=== PATIENT | male | born 1940 | race Caucasian/White ===

== ENCOUNTER 2017-07-25 14:15 | Emergency (ER) | payer OTHER ==
--- NOTE | 2017-07-25 14:53 | EDM.PDOC ---
ED HPI GENERAL MEDICAL PROBLEM - General Chief Complaint: Skin Complaint Stated Complaint: POST SURGICAL ISSUES Time Seen by Provider: 07/25/17 14:48 Source of Information: Reports: Patient, Family History Limitations: Reports: No Limitations - History of Present Illness INITIAL COMMENTS - FREE TEXT/NARRATIVE: 77-year-old male presents the ED for evaluation of marked swelling of his right upper extremity. Patient underwent formation of an AV fistula distal anterior volar arm days ago in [place]. This is in preparation for future dialysis need. He presents for evaluation due to marked swelling of the right upper extremity which is now spent all way down to his right hand. He was advised to keep his hand above the level of his heart but he was not given a sling per se. He has a sling at home but has not been using it much. Face the hand is now clumsy and weak due to the swelling.Sensation in his fingertips. There is also some serous drainage from his surgical wound which was of concern to his and daughter. He has no systemic signs of illness such as fever chills nausea vomiting. Onset: Gradual (right arm swelling is gradually worsened since surgery 3 days ago i.e. ) Duration: Day(s): Location: Reports: Upper Extremity, Right Quality: Reports: Ache, Other Severity: Moderate (righ) Improves with: Reports: None (t ar) Worsens with: Reports: None (pieter acosta) Context: Reports: Other (ng is gradual) Associated Symptoms: Reports: No Other Symptoms (ly wo) Treatments CLEANING SPECIALIST: Reports: Other (see below) (sened since surger) Past Medical History Genitourinary History: Reports: None (), Chronic Renal Insuffiency (July 22.genus of the hand and arm and inability to flex at the elbow.), Other ( See Below) (AV fistula performed July 22 right arm in preparation for likely need for dialysis in the next 6-12 months) Musculoskeletal History: Reports: Back Pain, Chronic Social & Family History - Living Situation & Occupation Living situation: Reports: Occupation: Retired ED ROS GENERAL - Review of Systems Review Of Systems: See Below Constitutional: Reports: Malaise, Fatigue (worse than normal). Denies: Fever, Chills HEENT: Reports: Glasses (for reading.) Respiratory: Reports: Shortness of Breath (n minimal exertion.) Cardiovascular: Reports: Blood Pressure Problem, Dyspnea on Exertion (chronic edema of the lower extremitieslikely), Edema. Denies: Chest Pain, Claudication , Lightheadedness, Orthopnea (as chronic hypertension related to renal disease) Endocrine: Reports: Fatigue GI/Abdominal: Reports: No Symptoms : Reports: Frequency, Other (passes small qualities of urine at a time.) Musculoskeletal: Reports: Neck Pain, Shoulder Pain (at timesat times), Back Pain , Joint Pain Skin: Reports: Bruising (nees and hips at times.bruises easily) Neurological: Reports: No Symptoms Psychiatric: Reports: No Symptoms Hematologic/Lymphatic: Reports: No Symptoms Immunologic: Reports: No Symptoms ED EXAM, SKIN/RASH Exam: See Below Exam Limited By: No Limitations General Appearance: Alert, WD/WN, No Apparent Distress, Other (color is poor a more of a bronzy slightly sallow complexion.) Eye Exam: Bilateral Eye: Normal Inspection Throat/Mouth: Normal Inspection, Normal Lips, Normal Oropharynx Head: Atraumatic, Normocephalic Neck: Normal Inspection, Supple, Limited Range of Motion, Tender Lateral (ild.) Respiratory/Chest: Respiratory Distress, Decreased Breath Sounds (tachypnea at rest), Rales (occasional crackles throughout both lung mcgowan.) Cardiovascular: Regular Rate, Rhythm, No Murmur, No Rub Peripheral Pulses: 1+: Posterior Tibial (L), Posterior Tibial (R), Dorsalis Pedis (L), Dorsalis Pedis (R), 3+: Radial (R) Extremities: Other (patient has marked swelling of his right arm particularly the distal one half. The AV fistula is formed in the volar surface above the antecubital fossa. The wound has been closed with glue. It is oozing some serous fluid. He has some bubbling of the skin of his proximal forearm due to fluid accumulation. The entire form is grossly swollen as is the dorsal aspect of his hand and even palmar aspect of the hand has fluid within it. Sensation is normal. He is unable to make a full fist due to the swelling of his hand similarly is unable to flex at the extra fossa due to the swelling. There is faint erythema of the arm but it appears to be due to underlying inflammation from blood in the soft tissues as it is not increased warmth to suggest a cellulitis. Patient reassured elevation is much as possible. I would wear the sling all day long and take it off when he's sitting at home and he can put up on a pillow. Swelling will start to go down over the next 3-7 days. The serous drainage is to be wiped away as often as needed 2 with soap and water. Topical antibiotic such as bacitracin or Polysporin to any of the blisters that pop up on his forearm until they heal. Is good strong radial pulse and he has good palpable thrill and auscultatory thrill over his AV fistula i.e. it is functioning normally.) Course - Vital Signs Last Recorded V/S: Last Vital Signs Temp 36.7 C 07/25/17 14:43 Pulse 87 07/25/17 14:43 Resp 20 07/25/17 14:43 BP 167/82 H 07/25/17 14:43 Pulse Ox 90 L 07/25/17 14:43 - Radiology Interpretation Free Text/Narrative:: 77-year-old male presents to the ED for evaluation of marked swelling of his right upper extremity post AV fistula formation distalanterior or volar arm above the antecubital fossa 3 days ago in [place]. He does have marked swelling of the entire one half of the arm is his entire forearm and his dorsal hand. Appears it was significant blood loss of the soft tissues at the time of surgery. There is some serous drainage from his wound but it still intact and closed the skin glue. There is some bubbling of the skin of his proximal forearm with one of them opening up and draining serous material. He has not been keeping in sling and therefore it is probably more swollen than it should be. At any rate there is no signs of infection of the wound at this time. His AV fistula is still functioning well with a good palpable thrill and good strong radial pulse.Treatment is to keep the arm elevated as much as possible. I suggested sling throughout the entire day when he's at home he can put it on a pillow to keep it at heart level. Serous drainage to be wiped away with soap and water as often as needed and topical antibiotic bacitracin or Polysporin to any wound that opens up and is draining serous material. Any signs of infection occur such as increased redness swelling or systemic signs of illness such as fever chills nausea vomiting. Departure - Departure Time of Disposition: 14:49 Disposition: Home, Self-Care 01 Condition: Fair Clinical Impression: Swelling of right upper extremity - Discharge Information Referrals: PCP,Not In Area [Primary Care Provider] - Forms: ED Department Discharge Additional Instructions: Evaluation in the emergency room today in regards to recent AV fistula formation right lower arm in preparation for hemodialysis in the future.this procedure was done 3 days ago. Due to the ED due to marked swelling of the biceps of the right armhich then extends throughout the forearm down to the dorsal aspect of the hand making it markedly swoln. Slight erythema of the arm but no increased warmth. is no sign of active infection at this time. There are some blisters forming on the proximal forearm and if these open up the need to be cleansed daily with soap and water and topical antibiotic such as bacitracin or Polysporin placed on them until the skin heals. The swelling is secondary to blood loss from the procedure itself. A lot of blood obviously was lost into the soft tissues muscles etc. and is now coming to the surface of the skin. [place] has caused the fluid to travel down the arm owards the hand. This is created the large amount of swelling. However the fistula itself is functioning well with apalpable thrill as well as auscultatory throat. You have good strong radial pulse 2-year-old right wrist. For other than swelling there are no complications of the procedure at this time. Treatment is to try keep the arm elevated at the level of the heart is much as possible when up and about. I would suggest an arm sling during the day when resting at home he may certainly put it on a pillow at at heart level.leroy the arm with gentle soap and water twice or 3 times daily until the serous drainage stops.This will usuallybe within the next 3 or 4 days. Return to medical care if the arm becomes hot red or inflamed develop any systemic signs of illness such as fever chills nausea or vomiting.
== END 2017-07-25 15:15 | disposition home or self-care (01) ==
LOC: JD.ED 14:15
DX: M79.89 Other specified soft tissue disorders (principal); N18.9 Chronic kidney disease, unspecified; Z99.2 Dependence on renal dialysis
CPT/HCPCS: 99283

== ENCOUNTER 2017-09-30 09:41 | Emergency (ER) | payer OTHER ==
[2017-09-30] MEDS ORDERED: Aspirin 81 MG Tab.Chew PO ONE (09:58)
[2017-09-30] MEDS ORDERED: Sodium Chloride 0.9% 10 ML Syringe FLUSH PRN (09:58)
[2017-09-30] MEDS ORDERED: Albuterol/Ipratropium 3.0-0.5 MG/3 ML Neb Soln NEB ONE (10:00)
[2017-09-30] MEDS ORDERED: methylPREDNISolone Sodium Succinate 125 MG/2 ML SDV IVPUSH ONE (10:00)
--- NOTE | 2017-09-30 11:13 | EDM.PDOC ---
ED HPI GENERAL MEDICAL PROBLEM - General Chief Complaint: Chest Pain Stated Complaint: CHEST PAIN Time Seen by Provider: 09/30/17 09:52 Source of Information: Reports: Patient, Family History Limitations: Reports: No Limitations - History of Present Illness INITIAL COMMENTS - FREE TEXT/NARRATIVE: The patient presents with chest pain and shortness of breath for the past 1 month. He is in renal failure and is scheduled for a nephrology consult with Dr Oliver tomorrow at [facility]. He has been having chest tightness and pressure. He is wearing 3L of oxygen at home. He is on that for COPD exacerbation. He has never been in A-fib before but it appears he is in A-fib now. He has no fever, chills, cough, abdominal pain, nausea or vomiting. He has edema in his legs. [facility] and he his doctor is at [facility] in [place]. Onset: Gradual Duration: Week(s): (4) Location: Reports: Chest Quality: Reports: Other (Tightness) Severity: Moderate Improves with: Reports: None Worsens with: Reports: None Associated Symptoms: Reports: Chest Pain, Shortness of Breath. Denies: Cough, Fever/Chills, Headaches, Nausea/Vomiting Chest Pain Score (Numeric/FACES): 10 - Related Data Allergies Allergy/AdvReac Type Severity Reaction Status Date / Time No Known Allergies Allergy Verified 09/30/17 09:50 Home Meds: Home Meds Acetaminophen [Tylenol Extra Strength] 1,000 mg PO Q6H PRN 09/30/17 [History] Acetaminophen/HYDROcodone [[place] 325-5 MG] 1 tab PO Q4H PRN 09/30/17 [History] Albuterol [Proventil HFA] 2 puff INH QID PRN 09/30/17 [History] Allopurinol [Zyloprim] 100 mg PO DAILY 09/30/17 [History] Ascorbic Acid [Vitamin C] 100 mg PO DAILY 09/30/17 [History] Aspirin 81 mg PO DAILY 09/30/17 [History] ClonazePAM [KlonoPIN] 1 mg PO BEDTIME 09/30/17 [History] Docusate Sodium [Colace] 100 mg PO DAILY 09/30/17 [History] Ferrous Sulfate 650 mg PO BID 09/30/17 [History] Formoterol [Foradil] 12 mcg PO BID 09/30/17 [History] Furosemide [Lasix] 40 mg PO DAILY 09/30/17 [History] Isosorbide Mononitrate [Imdur] 30 mg PO DAILY 09/30/17 [History] Metoprolol Tartrate [Lopressor] 50 mg PO BID 09/30/17 [History] Mineral Oil/Pramoxine/ZnOx [Anusol] 1 applic RECTAL DAILY PRN 09/30/17 [History] Nitroglycerin [Nitrostat] 0.4 mg PO Q5M PRN 09/30/17 [History] [place]-3/DHA/Epa/Fish Oil [Fish Oil 1,000 mg Softgel] 3,000 mg PO DAILY 09/30/17 [History] Omeprazole Magnesium [Prilosec Otc] 20 mg PO BID 09/30/17 [History] Tamsulosin [Flomax] 0.4 mg PO DAILY 09/30/17 [History] Viagra 50 mg PO DAILY PRN 09/30/17 [History] amLODIPine Besylate [Norvasc] 10 mg PO DAILY 09/30/17 [History] atorvaSTATin Calcium [Lipitor] 40 mg PO DAILY 09/30/17 [History] buPROPion [Wellbutrin] 100 mg PO BID 09/30/17 [History] Past Medical History Respiratory History: Reports: COPD Genitourinary History: Reports: Chronic Renal Insuffiency Other Genitourinary History: fistula placed to the right inner forearm for upcoming dialysis Musculoskeletal History: Reports: Back Pain, Chronic Social & Family History - Tobacco Use Smoking Status *Q: Former Smoker Used Tobacco, but Quit: Yes Month/Year Tobacco Last Used: August 2017 - Caffeine Use Caffeine Use: Reports: Coffee, Soda, Tea - Living Situation & Occupation Living situation: Reports: Occupation: Retired ED ROS GENERAL - Review of Systems Review Of Systems: See Below Constitutional: Reports: No Symptoms HEENT: Reports: No Symptoms Respiratory: Reports: Shortness of Breath Cardiovascular: Reports: Chest Pain, Dyspnea on Exertion, Edema Endocrine: Reports: No Symptoms GI/Abdominal: Reports: No Symptoms : Reports: No Symptoms Musculoskeletal: Reports: Other (Bilateral leg edema) ED EXAM, GENERAL - Physical Exam Exam: See Below Exam Limited By: No Limitations General Appearance: Alert, Mild Distress Ears: Normal External Exam Nose: Normal Inspection Head: Atraumatic, Normocephalic Neck: Normal Inspection Respiratory/Chest: Respiratory Distress (mild), Decreased Breath Sounds, Wheezing Cardiovascular: No Murmur, Irregularly Irregular, Other (Bilateral leg edema) GI/Abdominal: Soft, Non-Tender, No Organomegaly, No Mass Back Exam: Normal Inspection Extremities: Pedal Edema Neurological: Alert, Oriented, No Motor/Sensory Deficits EKG INTERPRETATION EKG Date: 09/30/17 Time: 09:48 Rhythm: A-Fib Rate (Beats/Min): 106 [place]: Normal QRS: Normal ST-T: Depressed (anterior, lateral and inferior leads) QT: Normal Course - Vital Signs Last Recorded V/S: Last Vital Signs Temp 97.2 F 09/30/17 09:47 Pulse 117 H 09/30/17 09:47 Resp 26 H 09/30/17 09:47 BP 131/80 09/30/17 09:47 Pulse Ox 93 L 09/30/17 10:15 - Orders/Labs/Meds Orders: Active Orders 24 hr Category Date Time Status Cardiac Monitoring [RC] . DIRECTED Care 09/30/17 09:58 Active EKG Documentation Completion [RC] STAT Care 09/30/17 09:59 Active Oxygen Therapy [RC] PRN Care 09/30/17 09:58 Active Peripheral IV Care [RC] . DIRECTED Care 09/30/17 09:59 Active RT Aerosol Therapy [RC] ASDIRECTED Care 09/30/17 10:00 Active Chest 1V Frontal [CR] Stat Exams 09/30/17 10:00 Taken CULTURE BLOOD [BC] Stat Lab 09/30/17 11:00 Received CULTURE BLOOD [BC] Stat Lab 09/30/17 11:10 Received PATIENT RETYPE [BBK] Stat Lab 09/30/17 09:50 Results RED BLOOD CELLS LP [BBK] Stat Lab 09/30/17 09:50 Results TYPE AND SCREEN [BBK] Stat Lab 09/30/17 09:50 Results UA W/MICROSCOPIC [URIN] Stat Lab 09/30/17 10:42 Ordered HYDROmorphone [Dilaudid] Med 09/30/17 11:37 Once 0.5 mg IVPUSH ONETIME ONE Potassium Chloride [KCl 10 MEQ in Water 100 ML] 10 meq Med 09/30/17 11:30 Active Premix Bag 1 bag IV ASDIRECTED Sodium Chloride 0.9% [Saline Flush] Med 09/30/17 09:58 Active 10 ml FLUSH ASDIRECTED PRN Blood Culture x2 Reflex Set [OM.PC] Stat [facility] 09/30/17 10:43 Ordered Peripheral IV Insertion Adult [OM.PC] Stat [facility] 09/30/17 09:58 Ordered Transfuse PRBC [Transfuse Red Blood Cells] [COMM] Stat Ot 09/30/17 10:44 Ordered Medication Orders Potassium Chloride 10 meq/ (Premix) 100 mls @ 100 mls/hr IV ASDIRECTED NICOL Sodium Chloride (Saline Flush) 10 ml FLUSH ASDIRECTED PRN PRN Reason: Keep Vein Open Last Admin: 09/30/17 10:24 Dose: 10 ml Labs: Laboratory Tests 09/30/17 09/30/17 09/30/17 Range/Units 09:50 09:50 09:50 WBC 13.47 H (4.23-9.07) K/mm3 RBC 2.52 L (4.63-6.08) M/mm3 Hgb 7.9 L (13.7-17.5) gm/L Hct 25.1 L (40.1-51.0) % MCV 99.6 H (79.0-92.2) fl MCH 31.3 (25.7-32.2) pg MCHC 31.5 L (32.2-35.5) g/dl RDW Std Deviation 55.6 H (35.1-43.9) fL Plt Count 268 (163-337) K/mm3 MPV 9.4 (9.4-12.3) fl Neut % (Auto) 81.6 H (34.0-67.9) % Lymph % (Auto) 7.8 L (21.8-53.1) % [place] % (Auto) 9.8 (5.3-12.2) % Eos % (Auto) 0.4 L (0.8-7.0) Baso % (Auto) 0.1 (0.1-1.2) % Neut # (Auto) 10.98 H (1.78-5.38) K/mm3 Lymph # (Auto) 1.05 L (1.32-3.57) K/mm3 [place] # (Auto) 1.32 H (0.30-0.82) K/mm3 Eos # (Auto) 0.06 (0.04-0.54) K/mm3 Baso # (Auto) 0.02 (0.01-0.08) K/mm3 Manual Slide Review Abnormal smear Sodium 140 (136-145) mEq/L Potassium 2.7 L (3.5-5.1) mEq/L Chloride 99 (98-107) mEq/L Carbon Dioxide 28 (21-32) mEq/L Anion Gap 15.7 H (5-15) BUN 43 H (7-18) mg/dL Creatinine 5.6 H (0.7-1.3) mg/dL Est Cr Clr Drug Dosing 11.05 mL/min Estimated GFR (MDRD) 10 (>60) mL/min BUN/Creatinine Ratio 7.7 L (14-18) Glucose 112 (83-115) mg/dL Calcium 6.5 L (8.5-10.1) mg/dL Total Bilirubin 0.4 (0.2-1.0) mg/dL AST 20 (15-37) U/L ALT 15 L (16-63) U/L Alkaline Phosphatase 72 (46-116) U/L Troponin I 0.243 H* (0.00-0.056) ng/mL NT-Pro-B Natriuret Pep > 31360 H (0-450) pg/mL Total Protein 6.5 (6.4-8.2) g/dl Albumin 2.2 L (3.4-5.0) g/dl Globulin 4.3 gm/dL Albumin/Globulin Ratio 0.5 L (1-2) Blood Type Gel Antibody Screen Crossmatch 09/30/17 Range/Units 09:50 WBC (4.23-9.07) K/mm3 RBC (4.63-6.08) M/mm3 Hgb (13.7-17.5) gm/L Hct (40.1-51.0) % MCV (79.0-92.2) fl MCH (25.7-32.2) pg MCHC (32.2-35.5) g/dl RDW Std Deviation (35.1-43.9) fL Plt Count (163-337) K/mm3 MPV (9.4-12.3) fl Neut % (Auto) (34.0-67.9) % Lymph % (Auto) (21.8-53.1) % [place] % (Auto) (5.3-12.2) % Eos % (Auto) (0.8-7.0) Baso % (Auto) (0.1-1.2) % Neut # (Auto) (1.78-5.38) K/mm3 Lymph # (Auto) (1.32-3.57) K/mm3 [place] # (Auto) (0.30-0.82) K/mm3 Eos # (Auto) (0.04-0.54) K/mm3 Baso # (Auto) (0.01-0.08) K/mm3 Manual Slide Review Sodium (136-145) mEq/L Potassium (3.5-5.1) mEq/L Chloride (98-107) mEq/L Carbon Dioxide (21-32) mEq/L Anion Gap (5-15) BUN (7-18) mg/dL Creatinine (0.7-1.3) mg/dL Est Cr Clr Drug Dosing mL/min Estimated GFR (MDRD) (>60) mL/min BUN/Creatinine Ratio (14-18) Glucose (83-115) mg/dL Calcium (8.5-10.1) mg/dL Total Bilirubin (0.2-1.0) mg/dL AST (15-37) U/L ALT (16-63) U/L Alkaline Phosphatase (46-116) U/L Troponin I (0.00-0.056) ng/mL NT-Pro-B Natriuret Pep (0-450) pg/mL Total Protein (6.4-8.2) g/dl Albumin (3.4-5.0) g/dl Globulin gm/dL Albumin/Globulin Ratio (1-2) Blood Type A POSITIVE Gel Antibody Screen Negative Crossmatch See Detail Meds: Medications Generic Name Dose Route Start Last Admin Trade Name Freq PRN Reason Stop Dose Admin Potassium Chloride 10 meq/ 100 mls @ 100 mls/hr 09/30/17 11:30 Premix IV ASDIRECTED NICOL Sodium Chloride 10 ml 09/30/17 09:58 09/30/17 10:24 Saline Flush FLUSH 10 ml ASDIRECTED PRN Administration Keep Vein Open Discontinued Medications Generic Name Dose Route Start Last Admin Trade Name [place] PRN Reason Stop Dose Admin Albuterol/Ipratropium 3 ml 09/30/17 10:00 09/30/17 10:15 Duoneb 3.0-0.5 Mg/3 Ml NEB 09/30/17 10:01 3 ml ONETIME ONE Administration Aspirin 324 mg 09/30/17 09:58 09/30/17 10:23 Aspirin PO 09/30/17 09:59 324 mg ONETIME ONE Administration Calcium Gluconate 1 gm 09/30/17 11:24 Calcium Gluconate IV 09/30/17 11:25 ONETIME ONE Furosemide 80 mg 09/30/17 11:22 Lasix IVPUSH 09/30/17 11:23 NOW ONE Methylprednisolone Sodium Succinate 125 mg 09/30/17 10:00 09/30/17 10:23 Solu-Medrol IVPUSH 09/30/17 10:01 125 mg ONETIME ONE Administration - Re-Assessments/Exams Free Text/Narrative Re-Assessment/Exam: 09/30/17 11:17 I ordered oxygen, labs, EKG, CXR, duo-neb, solu-medrol 125mg IV. His EKG shows new onset Atrial fibrillation with some ST depressions. His CXR shows congestive changes. His WBC was elevated at 13.47. His Hgb was low at 7.9. He has a history of anemia and he has been getting blood transfusions at [facility]. He was told he has some ulcers that were causing the problem. He has dark stool but he says that is normal for him because he is taking iron. I have ordered 2 units of PRBCs. His K was low at 2.7. His creatinine was 5.6. His BUN was elevated at 43. His GFR was 10. His calcium was low at 6.5. His troponin was elevated at 0.243. His BNP was very elevated >35,000. He does still make urine so I will give him some lasix 80mg IV. I will also give him some K 10meq IV and some calcium. I called [facility] to see if I need prior authorization to transfer him to [place]. They said they don't do preauthorizations and they wanted me to take care of Tani. 09/30/17 11:38 I feel he needs dialysis today. He will need to go to [facility]. I called [facility] and talked with the hospitalist Dr Barahona and he accepted the patient. The patient was having restless legs and pain in his legs. I ordered dilaudid 0.5mg IV. I will send him by Ambulance with the blood. Departure - Departure Time of Disposition: 11:50 Disposition: DC/Tfer to [facility] 02 Reason for Transfer *Q: Other Condition: Poor Clinical Impression: COPD exacerbation, New onset atrial fibrillation, Elevated troponin, Restless leg, Hypokalemia, Hypocalcemia Renal failure, acute Qualifiers: Acute renal failure type: unspecified Qualified Code(s): N17.9 - Acute kidney failure, unspecified CHF exacerbation Qualifiers: Heart failure type: unspecified Qualified Code(s): I50.9 - Heart failure, unspecified Anemia Qualifiers: Anemia type: other cause Other causes of anemia: other cause, not classified Qualified Code(s): D64.89 - Other specified anemias Leukocytosis Qualifiers: Leukocytosis type: unspecified Qualified Code(s): D72.829 - Elevated white blood cell count, unspecified Referrals: PCP,Not In Area [Primary Care Provider] - Forms: ED Department Discharge - My Orders Last 24 Hours: My Active Orders 09/30/17 09:50 PATIENT RETYPE [BBK] Stat RED BLOOD CELLS LP [BBK] Stat TYPE AND SCREEN [BBK] Stat 09/30/17 09:58 Cardiac Monitoring [RC] . DIRECTED Oxygen Therapy [RC] PRN Sodium Chloride 0.9% [Saline Flush] 10 ml FLUSH ASDIRECTED PRN Peripheral IV Insertion Adult [OM.PC] Stat 09/30/17 09:59 EKG Documentation Completion [RC] STAT Peripheral IV Care [RC] . DIRECTED 09/30/17 10:00 RT Aerosol Therapy [RC] ASDIRECTED Chest 1V Frontal [CR] Stat 09/30/17 10:42 UA W/MICROSCOPIC [URIN] Stat 09/30/17 10:43 Blood Culture x2 Reflex Set [OM.PC] Stat 09/30/17 10:44 Transfuse PRBC [Transfuse Red Blood Cells] [COMM] Stat 09/30/17 11:00 CULTURE BLOOD [BC] Stat 09/30/17 11:10 CULTURE BLOOD [BC] Stat 09/30/17 11:30 Potassium Chloride [KCl 10 MEQ in Water 100 ML] 10 meq Premix Bag 1 bag IV ASDIRECTED 09/30/17 11:37 HYDROmorphone [Dilaudid] 0.5 mg IVPUSH ONETIME ONE - Assessment/Plan Last 24 Hours: My Active Orders 09/30/17 09:50 PATIENT RETYPE [BBK] Stat RED BLOOD CELLS LP [BBK] Stat TYPE AND SCREEN [BBK] Stat 09/30/17 09:58 Cardiac Monitoring [RC] . DIRECTED Oxygen Therapy [RC] PRN Sodium Chloride 0.9% [Saline Flush] 10 ml FLUSH ASDIRECTED PRN Peripheral IV Insertion Adult [OM.PC] Stat 09/30/17 09:59 EKG Documentation Completion [RC] STAT Peripheral IV Care [RC] . DIRECTED 09/30/17 10:00 RT Aerosol Therapy [RC] ASDIRECTED Chest 1V Frontal [CR] Stat 09/30/17 10:42 UA W/MICROSCOPIC [URIN] Stat 09/30/17 10:43 Blood Culture x2 Reflex Set [OM.PC] Stat 09/30/17 10:44 Transfuse PRBC [Transfuse Red Blood Cells] [COMM] Stat 09/30/17 11:00 CULTURE BLOOD [BC] Stat 09/30/17 11:10 CULTURE BLOOD [BC] Stat 09/30/17 11:30 Potassium Chloride [KCl 10 MEQ in Water 100 ML] 10 meq Premix Bag 1 bag IV ASDIRECTED 09/30/17 11:37 HYDROmorphone [Dilaudid] 0.5 mg IVPUSH ONETIME ONE
[2017-09-30] MEDS ORDERED: Furosemide 40 MG/4 ML VIAL IVPUSH ONE (11:22)
[2017-09-30] MEDS ORDERED: Calcium Gluconate 10% 1 GM/10 ML SDV IV ONE (11:24)
[2017-09-30] MEDS ORDERED: Potassium Chloride 10 MEQ in Premix Bag 1 BAG IV SCH (11:30)
[2017-09-30] MEDS ORDERED: HYDROmorphone 0.5 MG/0.5 ML SYRINGE IVPUSH ONE (11:37)
--- NOTE | 2017-10-01 11:42 | CR ---
Chest: Portable view of the chest was obtained. Comparison: Prior chest portable chest x-ray of 10/15/09. Heart size appears within normal limits for portable technique. Upper mediastinum also within normal limits. Lung markings are mildly increased most likely due to mild pulmonary vascular congestion. Lungs otherwise are clear. Impression: 1. Findings suspicious for mild pulmonary vascular congestion. Diagnostic code #3
== END 2017-09-30 12:40 ==
LOC: JD.ED 09:41
DX: N17.9 Acute kidney failure, unspecified (principal); I48.91 Unspecified atrial fibrillation; I50.9 Heart failure, unspecified; J44.1 Chronic obstructive pulmonary disease with (acute) exacerbation; R79.89 Other specified abnormal findings of blood chemistry; E87.6 Hypokalemia; D64.89 Other specified anemias; D72.829 Elevated white blood cell count, unspecified; N18.9 Chronic kidney disease, unspecified; Z79.899 Other long term (current) drug therapy; Z87.891 Personal history of nicotine dependence; Z79.82 Long term (current) use of aspirin
CPT/HCPCS: 36415; 71045; 80053; 81001; 83880; 84484; 85025; 87040; 93005; 94640; 96365; 96375; 99285; A9270; J0610; J1170; J1940; J2930; J3480; J7050; P9016; 36430; 86850; 86900; 86901; 86922; 93010

== ENCOUNTER 2017-12-02 10:32 | Emergency (ER) | payer OTHER ==
[2017-12-02] MEDS ORDERED: methylPREDNISolone Sodium Succinate 125 MG/2 ML SDV IVPUSH ONE (11:11)
[2017-12-02] MEDS ORDERED: Albuterol/Ipratropium 3.0-0.5 MG/3 ML Neb Soln NEB ONE (11:11)
[2017-12-02] MEDS ORDERED: Sodium Chloride 0.9% 10 ML Syringe FLUSH PRN (11:11)
--- NOTE | 2017-12-02 12:51 | EDM.PDOC ---
ED HPI GENERAL MEDICAL PROBLEM - General Chief Complaint: Respiratory Problem Stated Complaint: COUGH AND SOB Time Seen by Provider: 12/02/17 10:57 Source of Information: Reports: Patient, RN Notes Reviewed - History of Present Illness INITIAL COMMENTS - FREE TEXT/NARRATIVE: 77-year-old male comes in with shortness of breath. This is been worsening over the past several days. He states he does have history of COPD and thinks this is acting like an exacerbation of COPD. He is not coughing any more than usual. Recent fever or chills. No abdominal pain nausea vomiting or diaphoresis. He does use home oxygen at night and much of the time during the day. When asked about this whether he is on a water pill or not he states he has been on that type of medication in the past but not currently described anything of that nature. - Related Data Allergies Allergy/AdvReac Type Severity Reaction Status Date / Time hydrocortisone Allergy Nausea and Verified 12/02/17 11:24 Vomiting Home Meds: Home Meds Acetaminophen [Tylenol Extra Strength] 1,000 mg PO Q6H PRN 09/30/17 [History] Albuterol [Proventil HFA] 2 puff INH QID PRN 09/30/17 [History] Allopurinol [Zyloprim] 100 mg PO DAILY 09/30/17 [History] Docusate Sodium [Colace] 100 mg PO DAILY 09/30/17 [History] Ferrous Sulfate 650 mg PO BID 09/30/17 [History] Isosorbide Mononitrate [Imdur] 30 mg PO DAILY 09/30/17 [History] Metoprolol Tartrate [Lopressor] 50 mg PO BID 09/30/17 [History] Mineral Oil/Pramoxine/ZnOx [Anusol] 1 applic RECTAL DAILY PRN 09/30/17 [History] Nitroglycerin [Nitrostat] 0.4 mg PO Q5M PRN 09/30/17 [History] [place]-3/DHA/Epa/Fish Oil [Fish Oil 1,000 mg Softgel] 3,000 mg PO DAILY 09/30/17 [History] Omeprazole Magnesium [Prilosec Otc] 20 mg PO BID 09/30/17 [History] Tamsulosin [Flomax] 0.4 mg PO DAILY 09/30/17 [History] atorvaSTATin Calcium [Lipitor] 80 mg PO DAILY 09/30/17 [History] ALPRAZolam [Xanax] 0.5 mg PO ASDIRECTED 12/02/17 [History] Albuterol/Ipratropium [DuoNeb 3.0-0.5 MG/3 ML] 3 ml .XX ASDIRECTED PRN 12/02/17 [History] Budesonide/Formoterol [Symbicort 160-4.5 MCG] 2 puff INH ASDIRECTED 12/02/17 [ History] Calcium Acetate [PhosLo] 667 mg PO ASDIRECTED 12/02/17 [History] Calcium Carbonate 650 mg PO DAILY 12/02/17 [History] Cholecalciferol (Vitamin D3) [Vitamin D3] 1,000 units PO DAILY 12/02/17 [History ] Doxycycline [Vibramycin] 100 mg PO BID #14 cap 12/02/17 [Rx] Fluconazole [Diflucan] 200 mg PO ASDIRECTED 12/02/17 [History] Levalbuterol Tartrate [Xopenex Hfa] 15 gm IH ASDIRECTED 12/02/17 [History] Losartan [Cozaar] 25 mg PO DAILY 12/02/17 [History] Magnesium Oxide [Magnesium] 400 mg PO DAILY 12/02/17 [History] rOPINIRole HCl [Requip] 0.5 mg PO TID PRN 12/02/17 [History] Past Medical History HEENT History: Reports: Cataract, Impaired Vision Cardiovascular History: Reports: Stents Respiratory History: Reports: Bronchitis, Recurrent, COPD, Pneumonia, Recurrent Gastrointestinal History: Reports: GERD Genitourinary History: Reports: Chronic Renal Insuffiency, Other (See Below) Other Genitourinary History: fistula placed to the right inner forearm for upcoming dialysis. Port to Right chest for dialysis Musculoskeletal History: Reports: Back Pain, Chronic - Past Surgical History HEENT Surgical History: Reports: Oral Surgery Social & Family History - Family History Family Medical History: Noncontributory - Tobacco Use Smoking Status *Q: Current Some Day Smoker Years of Tobacco use: 65 Packs/Tins Daily: 1 Tobacco Use Comment: Now smokes a cigar every now and then quit smoking cigarettes a couple of months ago but has smoked "since I was 9 years old" - Caffeine Use Caffeine Use: Reports: None - Recreational Drug Use Recreational Drug Use: No - Living Situation & Occupation Living situation: Reports: Occupation: Retired ED ROS GENERAL - Review of Systems Review Of Systems: See Below Constitutional: Reports: Fatigue. Denies: Fever, Chills HEENT: Denies: Rhinitis, Sinus Problem Respiratory: Reports: Shortness of Breath (Especially exertional), Cough ( Occasional), Sputum (Scant). Denies: Pleuritic Chest Pain Cardiovascular: Reports: Dyspnea on Exertion. Denies: Chest Pain, Edema, Lightheadedness GI/Abdominal: Denies: Abdominal Pain, Nausea, Vomiting Musculoskeletal: Denies: Shoulder Pain, Arm Pain Skin: Reports: No Symptoms Neurological: Reports: Dizziness. Denies: Numbness, Tingling ED EXAM, GENERAL - Physical Exam Exam: See Below General Appearance: Alert, No Apparent Distress Eye Exam: Bilateral Eye: PERRL Throat/Mouth: Normal Inspection, Normal Oropharynx Head: Atraumatic. No: Facial Swelling Neck: Supple, Full Range of Motion, Other (No JVD) Respiratory/Chest: Respiratory Distress, Rales (Mild bilateral). No: Rhonchi ( Mild tachypnea), Wheezing Cardiovascular: Regular Rate, Rhythm GI/Abdominal: Soft, Non-Tender Back Exam: No: CVA Tenderness (L), CVA Tenderness (R) Extremities: Pedal Edema (Trace bilateral). No: Leg Pain, Increased Warmth, Redness Neurological: Alert, Oriented, No Motor/Sensory Deficits Skin Exam: Warm, Dry, Normal Color Course - Vital Signs Last Recorded V/S: Last Vital Signs Temp 97.8 F 12/02/17 10:46 Pulse 96 12/02/17 10:46 Resp 24 H 12/02/17 10:46 BP 119/80 12/02/17 10:46 Pulse Ox 90 L 12/02/17 11:12 - Orders/Labs/Meds Orders: Active Orders 24 hr Category Date Time Status Peripheral IV Care [RC] . DIRECTED Care 12/02/17 11:12 Active RT Aerosol Therapy [RC] ASDIRECTED Care 12/02/17 11:12 Active Chest 1V Frontal [CR] Stat Exams 12/02/17 11:11 Taken Peripheral IV Insertion Adult [OM.PC] Stat Oth 12/02/17 11:11 Ordered Labs: Laboratory Tests 12/02/17 12/02/17 Range/Units 11:30 11:30 WBC 10.10 H (4.23-9.07) K/mm3 RBC 3.71 L (4.63-6.08) M/mm3 Hgb 11.6 L (13.7-17.5) gm/L Hct 37.3 L (40.1-51.0) % MCV 100.5 H (79.0-92.2) fl MCH 31.3 (25.7-32.2) pg MCHC 31.1 L (32.2-35.5) g/dl RDW Std Deviation 64.2 H (35.1-43.9) fL Plt Count 205 (163-337) K/mm3 MPV 10.0 (9.4-12.3) fl Neut % (Auto) 73.5 H (34.0-67.9) % Lymph % (Auto) 11.4 L (21.8-53.1) % Harris % (Auto) 9.9 (5.3-12.2) % Eos % (Auto) 4.7 (0.8-7.0) Baso % (Auto) 0.3 (0.1-1.2) % Neut # (Auto) 7.43 H (1.78-5.38) K/mm3 Lymph # (Auto) 1.15 L (1.32-3.57) K/mm3 Harris # (Auto) 1.00 H (0.30-0.82) K/mm3 Eos # (Auto) 0.47 (0.04-0.54) K/mm3 Baso # (Auto) 0.03 (0.01-0.08) K/mm3 Sodium 139 (136-145) mEq/L Potassium 4.2 (3.5-5.1) mEq/L Chloride 104 (98-107) mEq/L Carbon Dioxide 28 (21-32) mEq/L Anion Gap 11.2 (5-15) BUN 28 H (7-18) mg/dL Creatinine 4.4 H (0.7-1.3) mg/dL Est Cr Clr Drug Dosing 14.06 mL/min Estimated GFR (MDRD) 13 (>60) mL/min BUN/Creatinine Ratio 6.4 L (14-18) Glucose 104 (83-115) mg/dL Calcium 8.7 (8.5-10.1) mg/dL Total Bilirubin 0.2 (0.2-1.0) mg/dL AST 16 (15-37) U/L ALT 11 L (16-63) U/L Alkaline Phosphatase 80 (46-116) U/L Total Protein 7.6 (6.4-8.2) g/dl Albumin 2.8 L (3.4-5.0) g/dl Globulin 4.8 gm/dL Albumin/Globulin Ratio 0.6 L (1-2) Meds: Medications Discontinued Medications Generic Name Dose Route Start Last Admin Trade Name Freq PRN Reason Stop Dose Admin Albuterol/Ipratropium 3 ml 12/02/17 11:11 12/02/17 11:25 Duoneb 3.0-0.5 Mg/3 Ml NEB 12/02/17 11:12 3 ml ONETIME ONE Administration Methylprednisolone Sodium Succinate 125 mg 12/02/17 11:11 12/02/17 11:38 Solu-Medrol IVPUSH 12/02/17 11:12 125 mg ONETIME ONE Administration Sodium Chloride 10 ml 12/02/17 11:11 12/02/17 11:38 Saline Flush FLUSH 10 ml ASDIRECTED PRN Administration Keep Vein Open - Re-Assessments/Exams Free Text/Narrative Re-Assessment/Exam: 12/02/17 17:08 Labs did come back relatively normal. We did give Solu-Medrol 125 mg IV. We also did give a DuoNeb treatment. He did seem to get some relief from that. Chest x-ray shows very mild cardiomegaly, mild pulmonary congestion. As noted he is not currently on a diuretic, he is been on one in the past. Clear he is been off of that medication but looks like he should benefit from being on at least low-dose diuretic at this time. Have prescribed Lasix 40 mg daily to take for 5 days and then to go to 20 mg daily until instructed otherwise. Discharge instructions as documented. Departure - Departure Time of Disposition: 12:46 Disposition: Home, Self-Care 01 Condition: Fair Clinical Impression: COPD with exacerbation Congestive heart failure Qualifiers: Heart failure type: combined systolic and diastolic Heart failure chronicity: acute on chronic Qualified Code(s): I50.43 - Acute on chronic combined systolic (congestive) and diastolic (congestive) heart failure - Discharge Information Prescriptions: Doxycycline [Vibramycin] 100 mg PO BID #14 cap Instructions: Chronic Obstructive Pulmonary Disease, [id number], Heart Failure, [id number] Referrals: PCP,Not In Area [Primary Care Provider] - Forms: ED Department Discharge Additional Instructions: Go back to taking your water pill, diuretic medication once daily as previously prescribed, check daily weights for now and keep a log for your medical provider to review next follow-up appointment, prednisone as prescribed doxycycline antibiotic 100 mg twice daily for 1 week. Follow-up clinic in about 5-7 days for recheck, call for appointment. Return to ED as needed if symptoms worsening in any way. - My Orders Last 24 Hours: My Active Orders 12/02/17 11:11 Chest 1V Frontal [CR] Stat Peripheral IV Insertion Adult [OM.PC] Stat 12/02/17 11:12 Peripheral IV Care [RC] . DIRECTED RT Aerosol Therapy [RC] ASDIRECTED - Assessment/Plan Last 24 Hours: My Active Orders 12/02/17 11:11 Chest 1V Frontal [CR] Stat Peripheral IV Insertion Adult [OM.PC] Stat 12/02/17 11:12 Peripheral IV Care [RC] . DIRECTED RT Aerosol Therapy [RC] ASDIRECTED
--- NOTE | 2017-12-03 14:08 | CR ---
Chest: Portable view of the chest was obtained. Comparison: Prior chest x-ray of 09/30/17. Heart is enlarged. Minimal pulmonary vascular congestion is seen. Lungs otherwise are clear. Right sided dialysis catheter appears to be present. Bony structures are grossly intact. Impression: 1. Cardiomegaly. 2. Minimal pulmonary vascular congestion which is improved from previous exam. 3. Interval replacement of right sided dialysis catheter. Diagnostic code #3
== END 2017-12-02 13:12 | disposition home or self-care (01) ==
LOC: JD.ED 10:32
DX: J44.1 Chronic obstructive pulmonary disease with (acute) exacerbation (principal); K21.9 Gastro-esophageal reflux disease without esophagitis; F17.210 Nicotine dependence, cigarettes, uncomplicated; Z88.8 Allergy status to other drugs, medicaments and biological substances; Z79.899 Other long term (current) drug therapy; Z87.01 Personal history of pneumonia (recurrent)
CPT/HCPCS: 36415; 71045; 80053; 85025; 94640; 96374; 99285; J2930; J7050; 99284; J7620-GY

== ENCOUNTER 2018-03-25 05:44 | Emergency (ER) | payer OTHER ==
[2018-03-25] MEDS ORDERED: LORazepam 0.5 MG Tab PO ONE (07:31)
--- NOTE | 2018-03-25 07:44 | EDM.PDOC ---
ED HPI GENERAL MEDICAL PROBLEM - General Chief Complaint: General Stated Complaint: UNABLE TO SLEEP ON DIALYSIS Time Seen by Provider: 03/25/18 07:00 Source of Information: Reports: Patient History Limitations: Reports: No Limitations - History of Present Illness INITIAL COMMENTS - FREE TEXT/NARRATIVE: The patient presents because he cannot sleep for the past 3 days. He has had trouble before and tried melatonin but that did not help. He got better but now he is having trouble again. He is in renal failure and has dialysis 3 times per week. He also has COPD and he is oxygen dependant. He has no chest pain, fever, chills, cough, abdominal pain, nausea or vomiting. He did talk with his doctor this week about his sleep but she was reluctant to give him anything because of the renal failure. He is anxious and cannot get comfortable. Onset: Gradual Duration: Day(s): (3) Severity: Severe Improves with: Reports: None Worsens with: Reports: None Associated Symptoms: Reports: Shortness of Breath. Denies: Chest Pain, Cough, Fever/Chills, Headaches, Nausea/Vomiting - Related Data Allergies Allergy/AdvReac Type Severity Reaction Status Date / Time fentanyl Allergy Drowsiness Verified 03/25/18 06:07 hydrocortisone AdvReac Nausea and Verified 03/25/18 06:07 Vomiting Home Meds: Home Meds Albuterol [Proventil HFA] 2 puff INH QID PRN 09/30/17 [History] Allopurinol [Zyloprim] 100 mg PO DAILY 09/30/17 [History] Ferrous Sulfate 650 mg PO BID 09/30/17 [History] Isosorbide Mononitrate [Imdur] 30 mg PO DAILY PRN 09/30/17 [History] Metoprolol Tartrate [Lopressor] 200 mg PO BID 09/30/17 [History] Nitroglycerin [Nitrostat] 0.4 mg PO Q5M PRN 09/30/17 [History] [place]-3/DHA/Epa/Fish Oil [Fish Oil 1,000 mg Softgel] 1,000 mg PO DAILY 09/30/17 [History] Omeprazole Magnesium [Prilosec Otc] 20 mg PO BID 09/30/17 [History] atorvaSTATin Calcium [Lipitor] 40 mg PO DAILY 09/30/17 [History] Acetaminophen [Tylenol Extra Strength] 500 mg PO Q6HR PRN 01/29/18 [History] Ascorbic Acid [Vitamin C] 100 mg PO DAILY 01/29/18 [History] Aspirin [Ecotrin] 81 mg PO DAILY 01/29/18 [History] Formoterol [Foradil] 1 puff INH BID 01/29/18 [History] Furosemide [Lasix] 40 mg PO DAILY 01/29/18 [History] amLODIPine Besylate [Norvasc] 10 mg PO DAILY 01/29/18 [History] buPROPion [Wellbutrin] 100 mg PO BID 01/29/18 [History] ALPRAZolam [Xanax] 0.5 mg PO Q12H PRN 02/28/18 [History] Calcitriol 0.25 mcg PO ASDIRECTED 02/28/18 [History] Losartan [Cozaar] 12.5 mg PO DAILY 02/28/18 [History] Sertraline [Zoloft] 12.5 mg PO DAILY 02/28/18 [History] Sodium Bicarbonate 325 mg PO TID 02/28/18 [History] Stiolto Respimat. 2 puff INH DAILY 02/28/18 [History] Xopenex Inhaler. 2 puff INH Q4H PRN 02/28/18 [History] rOPINIRole [Requip] 0.5 mg PO TID PRN 02/28/18 [History] LORazepam [Ativan] 0.5 mg PO Q8HR PRN #20 tablet 03/25/18 [Rx] Past Medical History HEENT History: Reports: Impaired Vision Cardiovascular History: Reports: Afib, CAD, High Cholesterol, Hypertension Respiratory History: Reports: COPD Gastrointestinal History: Reports: GERD, GI Bleed, PUD Genitourinary History: Reports: BPH, Dialysis Other Genitourinary History: fistula placed to the right inner forearm for upcoming dialysis. Port to Right chest for dialysis Musculoskeletal History: Reports: Gout, Osteoarthritis, Other (See Below) Neurological History: Reports: CVA - Infectious Disease History Infectious Disease History: Reports: Chicken Pox - Past Surgical History HEENT Surgical History: Reports: Oral Surgery Cardiovascular Surgical History: Reports: Carotid Endarterectomy, Coronary Artery Stent, Vascular Surgery Social & Family History - Family History Family Medical History: Noncontributory - Tobacco Use Smoking Status *Q: Current Every Day Smoker Years of Tobacco use: 70 Packs/Tins Daily: 0.5 - Caffeine Use Caffeine Use: Reports: None - Recreational Drug Use Recreational Drug Use: No - Living Situation & Occupation Living situation: Reports: , with Spouse Occupation: Retired ED ROS GENERAL - Review of Systems Review Of Systems: See Below Constitutional: Reports: No Symptoms HEENT: Reports: No Symptoms Respiratory: Reports: Shortness of Breath. Denies: Cough Cardiovascular: Reports: No Symptoms Endocrine: Reports: No Symptoms GI/Abdominal: Reports: No Symptoms : Reports: No Symptoms Musculoskeletal: Reports: No Symptoms ED EXAM, GENERAL - Physical Exam Exam: See Below Exam Limited By: No Limitations General Appearance: Alert, Anxious Ears: Normal External Exam Nose: Normal Inspection Head: Atraumatic, Normocephalic Neck: Normal Inspection Respiratory/Chest: No Respiratory Distress, Lungs Clear, Normal Breath Sounds Cardiovascular: Regular Rate, Rhythm, No Edema, No Murmur GI/Abdominal: Soft, Non-Tender, No Organomegaly, No Mass Back Exam: Normal Inspection Extremities: Normal Inspection Neurological: Alert, Oriented, No Motor/Sensory Deficits Course - Vital Signs Last Recorded V/S: Last Vital Signs Temp 98.4 F 03/25/18 06:04 Pulse 110 H 03/25/18 06:04 Resp 18 03/25/18 06:04 BP 152/90 H 03/25/18 06:04 Pulse Ox 90 L 03/25/18 06:04 - Orders/Labs/Meds Meds: Medications Discontinued Medications Generic Name Dose Route Start Last Admin Trade Name Freq PRN Reason Stop Dose Admin Lorazepam 0.5 mg 03/25/18 07:31 Ativan PO 03/25/18 07:32 ONETIME ONE - Re-Assessments/Exams Free Text/Narrative Re-Assessment/Exam: 03/25/18 07:46 I ordered some ativan 0.5mg PO. I will see how he tolerates it and give him a prescription for more. Departure - Departure Time of Disposition: 07:50 Disposition: Home, Self-Care 01 Condition: Good Clinical Impression: Anxiety Insomnia Qualifiers: Insomnia type: unspecified Qualified Code(s): G47.00 - Insomnia, unspecified - Discharge Information *PRESCRIPTION DRUG MONITORING PROGRAM REVIEWED*: No *COPY OF PRESCRIPTION DRUG MONITORING REPORT IN PATIENT JUSTIN: No Prescriptions: LORazepam [Ativan] 0.5 mg PO Q8HR PRN #20 tablet PRN Reason: Sleep Referrals: Harriet Carroll MD [Primary Care Provider] - Additional Instructions: Take your other medication as prescribed. Take the ativan 0.5mg every 8 hours as needed for anxiety and sleep. You may take 1mg or 2 pills if the 0.5mg is not working. Please return if you are worse.
== END 2018-03-25 08:00 | disposition home or self-care (01) ==
LOC: JD.ED 05:44
DX: F41.9 Anxiety disorder, unspecified (principal); G47.00 Insomnia, unspecified; I48.91 Unspecified atrial fibrillation; E78.00 Pure hypercholesterolemia, unspecified; I10 Essential (primary) hypertension; J44.9 Chronic obstructive pulmonary disease, unspecified; F17.210 Nicotine dependence, cigarettes, uncomplicated; Z79.899 Other long term (current) drug therapy; Z88.8 Allergy status to other drugs, medicaments and biological substances; Z88.5 Allergy status to narcotic agent
CPT/HCPCS: 99283; A9270

== ENCOUNTER 2018-04-04 15:05 | Emergency (ER) | payer OTHER ==
[2018-04-04] MEDS ORDERED: Furosemide 40 MG/4 ML VIAL IVPUSH ONE (15:24)
[2018-04-04] MEDS ORDERED: Propofol 200 MG/20 ML SDV IVPUSH ONE (15:50)
--- NOTE | 2018-04-04 16:21 | CR ---
Chest: Portable view of the chest was obtained. Comparison: Prior chest x-ray of 02/28/18. Heart is enlarged. Pulmonary vessels are diffusely congested. Right-sided infusion catheter is seen. Bony structures are grossly intact. Impression: 1. Diffuse pulmonary vascular congestion. Other incidental findings. Diagnostic code #3
--- NOTE | 2018-04-04 16:29 | EDM.PDOC ---
ED HPI GENERAL MEDICAL PROBLEM - General Chief Complaint: Respiratory Problem Stated Complaint: SOB Time Seen by Provider: 04/04/18 15:25 Source of Information: Reports: Family (, daughter), RN (Dialysis nurses) History Limitations: Reports: Altered Mental Status - History of Present Illness INITIAL COMMENTS - FREE TEXT/NARRATIVE: The patient is brought from the dialysis unit by 2 dialysis nurses. The patient receives hemodialysis via a hemodialysis catheter in the right chest, placed by Dr. Wu at [facility] in either July or August 2017. A prior attempt at a right upper extremity AV graft apparently failed. According to the patient's , the patient was doing well over the weekend, but became short of breath this morning. When he arrived at dialysis, he was found to be 5 kg above his dry weight. The dialysis nurses informed me that when they were trying to dialyze him, the dialysis machine kept stopping due to excessive pressures. The dialysis catheter is not completely clogged, however, it appears to be partially obstructed. They attempted to clear the catheter with TPA, to no avail. The patient became more more dyspneic and less and less responsive, therefore they brought him to the ED. Upon arrival to the ED, the patient is awake, but appears to be in some respiratory distress and does not follow commands. Initial BP 158/142, initial respiratory rate 30. Oxygen by partial rebreather was applied. BiPAP was ordered , and started at 10/5/titrate to SpO2 95%. The patient appeared to tolerate BiPAP quite well, with tidal voklumes in the mid-300s and FiO2 down to 0.50. We were informed that the patient makes a small amount of urine, therefore 80 mg IV Lasix was ordered. I later discovered that the patient takes oral Lasix, indicating that he likely urinates more than just a little. The patient's PCP is Dr. Harriet Carroll at [facility]. The patient's Collision Worker is Dr. Oliver. - Related Data Allergies Allergy/AdvReac Type Severity Reaction Status Date / Time fentanyl Allergy Drowsiness Verified 04/04/18 15:15 hydrocortisone AdvReac Nausea and Verified 04/04/18 15:15 Vomiting Home Meds: Home Meds Albuterol [Proventil HFA] 2 puff INH QID PRN 09/30/17 [History] Allopurinol [Zyloprim] 100 mg PO DAILY 09/30/17 [History] Ferrous Sulfate 650 mg PO BID 09/30/17 [History] Isosorbide Mononitrate [Imdur] 30 mg PO DAILY PRN 09/30/17 [History] Metoprolol Tartrate [Lopressor] 200 mg PO BID 09/30/17 [History] Nitroglycerin [Nitrostat] 0.4 mg PO Q5M PRN 09/30/17 [History] [place]-3/DHA/Epa/Fish Oil [Fish Oil 1,000 mg Softgel] 1,000 mg PO DAILY 09/30/17 [History] Omeprazole Magnesium [Prilosec Otc] 20 mg PO BID 09/30/17 [History] atorvaSTATin Calcium [Lipitor] 40 mg PO DAILY 09/30/17 [History] Acetaminophen [Tylenol Extra Strength] 500 mg PO Q6HR PRN 01/29/18 [History] Ascorbic Acid [Vitamin C] 100 mg PO DAILY 01/29/18 [History] Aspirin [Ecotrin] 81 mg PO DAILY 01/29/18 [History] Formoterol [Foradil] 1 puff INH BID 01/29/18 [History] Furosemide [Lasix] 40 mg PO DAILY 01/29/18 [History] amLODIPine Besylate [Norvasc] 10 mg PO DAILY 01/29/18 [History] buPROPion [Wellbutrin] 100 mg PO BID 01/29/18 [History] ALPRAZolam [Xanax] 0.5 mg PO Q12H PRN 02/28/18 [History] Calcitriol 0.25 mcg PO ASDIRECTED 02/28/18 [History] Losartan [Cozaar] 12.5 mg PO DAILY 02/28/18 [History] Sertraline [Zoloft] 12.5 mg PO DAILY 02/28/18 [History] Sodium Bicarbonate 325 mg PO TID 02/28/18 [History] Stiolto Respimat. 2 puff INH DAILY 02/28/18 [History] Xopenex Inhaler. 2 puff INH Q4H PRN 02/28/18 [History] rOPINIRole [Requip] 0.5 mg PO TID PRN 02/28/18 [History] LORazepam [Ativan] 0.5 mg PO Q8HR PRN #20 tablet 03/25/18 [Rx] Past Medical History HEENT History: Reports: Impaired Vision Cardiovascular History: Reports: Afib (paroxysmal), CAD, High Cholesterol, Hypertension Respiratory History: Reports: COPD Gastrointestinal History: Reports: GERD, GI Bleed, PUD Genitourinary History: Reports: BPH, Dialysis Musculoskeletal History: Reports: Gout, Osteoarthritis Neurological History: Reports: TIA, Other (See Below) (Restless leg syndrome) Psychiatric History: Reports: Anxiety, Depression Endocrine/Metabolic History: Reports: Hypothyroidism, Obesity/BMI 30+ - Infectious Disease History Infectious Disease History: Reports: Chicken Pox - Past Surgical History HEENT Surgical History: Reports: Oral Surgery Cardiovascular Surgical History: Reports: Carotid Endarterectomy, Coronary Artery Stent (x 1), Vascular Surgery (Right chest hemodialysis catheter July or August 2017. Right upper extremity AV fistula attempt. Renal artery stent x 1) Social & Family History - Family History Family Medical History: Noncontributory - Tobacco Use Smoking Status *Q: Current Every Day Smoker Years of Tobacco use: 68 Packs/Tins Daily: 0.5 Packs/Tins Daily Comment: Down from 1.5 ppd - Caffeine Use Caffeine Use: Reports: Coffee - Alcohol Use Alcohol Use History: No - Recreational Drug Use Recreational Drug Use: No - Living Situation & Occupation Living situation: Reports: , with Spouse Occupation: Retired ED ROS GENERAL - Review of Systems Review Of Systems: ROS reveals no pertinent complaints other than HPI. ED EXAM, GENERAL - Physical Exam Exam: See Below Exam Limited By: Physical Impairment General Appearance: WD/WN, Moderate Distress Ears: Normal External Exam Nose: Normal Inspection Throat/Mouth: Normal Inspection, Normal Lips Head: Atraumatic, Normocephalic Neck: Normal Inspection, Full Range of Motion Respiratory/Chest: No Accessory Muscle Use, Decreased Breath Sounds, Crackles, Rhonchi. No: Wheezing, Stridor, Prolonged Expiration Cardiovascular: Normal Peripheral Pulses, Regular Rate, Rhythm, No Gallop, No JVD, No Murmur, No Rub Peripheral Pulses: 4+: Radial (L), Radial (R) GI/Abdominal: Normal Bowel Sounds, Soft, No Organomegaly, No Distention, No Abnormal Bruit, No Mass, Other (Obese) (Male) Exam: Deferred Rectal (Males) Exam: Deferred Extremities: Normal Range of Motion, Normal Capillary Refill Neurological: Unresponsive Skin Exam: Warm, Dry, Intact, No Rash, Other (Dusky) ED RESPIRATORY PROCEDURES - Endotracheal Intubation Time of Intubation: 16:07 ET Intubation Indication: Respiratory Failure Preparation: Suction, Balloon Tested, BVM Set Up, Difficult Airway Equip Pre-Oxygenation: Assisted with BVM, 100% FiO2 Anesthesia Meds: Propofol (40 mg) Placement: Orotracheal, Cuffed, Uncomplicated Placement Cords Visualized: Yes, Grade 2 ETT Size In mm: 8.0 Number of Attempts: 1 Confirmed By: CO2 Indicator, Bilateral Breath Sounds, Chest Xray Tube Secured By: By RT Course - Vital Signs Last Recorded V/S: Last Vital Signs Temp 36.3 C 04/04/18 15:10 Pulse 78 04/04/18 15:10 Resp 30 H 04/04/18 15:10 BP 158/142 H 04/04/18 15:10 Pulse Ox 98 04/04/18 15:10 - Orders/Labs/Meds Orders: Active Orders 24 hr Category Date Time Status BIPAP Adult [RT BiPAP/CPAP] [RC] ASDIRECTED Care 04/04/18 15:40 Active EKG Documentation Completion [RC] STAT Care 04/04/18 15:43 Active OR PCXR-No Charge-PICC/Central [CR] Stat Exams 04/04/18 16:13 Taken BLOOD GAS ARTERIAL [BG] Stat Lab 04/04/18 15:40 Ordered Labs: Laboratory Tests 04/04/18 04/04/18 Range/Units 15:41 15:41 WBC 20.22 H (4.23-9.07) K/mm3 RBC 3.35 L (4.63-6.08) M/mm3 Hgb 11.2 L (13.7-17.5) gm/L Hct 36.5 L (40.1-51.0) % MCV 109.0 H (79.0-92.2) fl MCH 33.4 H (25.7-32.2) pg MCHC 30.7 L (32.2-35.5) g/dl RDW Std Deviation 61.9 H (35.1-43.9) fL Plt Count 216 (163-337) K/mm3 MPV 9.3 L (9.4-12.3) fl Neutrophils % (Manual) 88 H (40-60) % Band Neutrophils % 4 (0-10) % Lymphocytes % (Manual) 4 L (20-40) % Atypical Lymphs % 0 % Monocytes % (Manual) 4 (2-10) % Eosinophils % (Manual) 0 L (0.8-7.0) % Basophils % (Manual) 0 L (0.2-1.2) Platelet Estimate Adequate Anisocytosis 2+ moderate Macrocytosis 2+ moderate RBC Morph Comment Not Reportable Sodium 136 (136-145) mEq/L Potassium 6.0 H (3.5-5.1) mEq/L Chloride 101 (98-107) mEq/L Carbon Dioxide 28 (21-32) mEq/L Anion Gap 13.0 (5-15) BUN 62 H (7-18) mg/dL Creatinine 5.5 H (0.7-1.3) mg/dL Est Cr Clr Drug Dosing TNP Estimated GFR (MDRD) 10 (>60) mL/min BUN/Creatinine Ratio 11.3 L (14-18) Glucose 150 H (83-115) mg/dL Calcium 8.2 L (8.5-10.1) mg/dL Magnesium 1.9 (1.8-2.4) mg/dl Total Bilirubin 0.5 (0.2-1.0) mg/dL AST 16 (15-37) U/L ALT 20 (16-63) U/L Alkaline Phosphatase 75 (46-116) U/L Total Protein 8.2 (6.4-8.2) g/dl Albumin 3.4 (3.4-5.0) g/dl Globulin 4.8 gm/dL Albumin/Globulin Ratio 0.7 L (1-2) Meds: Medications Discontinued Medications Generic Name Dose Route Start Last Admin Trade Name Freq PRN Reason Stop Dose Admin Furosemide 80 mg 04/04/18 15:24 04/04/18 15:28 Lasix IVPUSH 04/04/18 15:25 80 mg NOW ONE Administration Propofol Confirm 04/04/18 15:48 Diprivan 100 Ml Administered 04/04/18 15:49 Dose 100 mls @ as directed .ROUTE .STK-MED ONE - Re-Assessments/Exams Free Text/Narrative Re-Assessment/Exam: 04/04/18 15:55 Case discussed with Sadiq Townsend [facility] at 15:26. Case then discussed with Dr. Wu, Vascular Surgeon at [facility], at 15:30. He recommended that the patient be transferred to their ED, where he could receive a temporary hemodialysis catheter. The [address]ank [address] Dr. Muro by [facility]. The patient will go to the ICU to receive hemodialysis after the catheter is placed in the ED. Case then discussed with Dr. Landry, emergency physician at [facility], at 15:44. He requested that the patient be intubated prior to transport, but accepted the patient for transport to their ED. 04/04/18 16:24 The patient was sedated with 40 mg IV propofol, followed by 100 mg IV rocuronium. BVM ventilations were provided, with 100% supplemental oxygen, to a SpO2 of 100%. After adequate sedation was achieved, the patient was intubated using a 3.0 Mac blade and 8.0 OETT at 16:07. The cords were visualized. The tube was placed to 23 cm at the gingiva and secured by RT. Positive CO2 colorimetric change. Positive exhalation fogging in the tube. Positive bilateral chest rise. Breath sounds heard in the bilateral axillae. Post- intubation portable chest radiograph pending. The patient tolerated the procedure well. A propofol drip at 25 mcg/kg/min was subsequently started. 04/04/18 16:44 Portable chest radiograph reviewed. The cardiac silhouette appears to be within normal limits. There is pulmonary vascular congestion, consistent with decompensated CHF. The left costophrenic angle is not visualized, but no pleural effusions are seen on this AP view. No focal infiltrate. No pneumothorax. The tip of the ET tube is partially 2.5 cm above the evette. There is an OG tube is seen to the stomach, via the esophagus. There is a right hemodialysis catheter incidentally noted. Formal read per the Radiologist pending. 04/04/18 16:59 Chest x-ray images have been pushed to [facility]. Departure - Departure Time of Disposition: 16:25 Disposition: DC/Tfer to Acute Hospital 02 Condition: Fair Clinical Impression: Non-cardiogenic pulmonary edema, End-stage renal disease on hemodialysis, Hemodialysis catheter malfunction Respiratory failure Qualifiers: Chronicity: acute Respiratory failure complication: unspecified whether with hypoxia or hypercapnia Qualified Code(s): J96.00 - Acute respiratory failure, unspecified whether with hypoxia or hypercapnia - Discharge Information *PRESCRIPTION DRUG MONITORING PROGRAM REVIEWED*: Not Applicable *COPY OF PRESCRIPTION DRUG MONITORING REPORT IN PATIENT JUSTIN: Not Applicable Referrals: Harriet Carroll MD [Primary Care Provider] - - My Orders Last 24 Hours: My Active Orders 04/04/18 15:40 BIPAP Adult [RT BiPAP/CPAP] [RC] ASDIRECTED BLOOD GAS ARTERIAL [BG] Stat 04/04/18 15:43 EKG Documentation Completion [RC] STAT 04/04/18 16:13 OR PCXR-No Charge-PICC/Central [CR] Stat - Assessment/Plan Last 24 Hours: My Active Orders 04/04/18 15:40 BIPAP Adult [RT BiPAP/CPAP] [RC] ASDIRECTED BLOOD GAS ARTERIAL [BG] Stat 04/04/18 15:43 EKG Documentation Completion [RC] STAT 04/04/18 16:13 OR PCXR-No Charge-PICC/Central [CR] Stat
--- NOTE | 2018-04-04 18:57 | CR ---
Chest: Portable view of the chest was obtained. Comparison: Previous chest x-ray performed earlier the same day (3:34 PM). Endotracheal tube is seen. Tip lies midway between the clavicle and evette. Nasogastric tube courses off the inferior edge of the film. Right-sided central catheter is seen. Heart is enlarged. Pulmonary vessels remain congested. Impression: 1. Satisfactory position of endotracheal tube. Nasogastric tube courses off the inferior edge of the film. 2. Stable cardiomegaly and pulmonary vascular congestion. Diagnostic code #3
== END 2018-04-04 16:45 ==
LOC: JD.ED 15:05
DX: T82.49XA Other complication of vascular dialysis catheter, initial encounter (principal); J96.00 Acute respiratory failure, unspecified whether with hypoxia or hypercapnia; J81.1 Chronic pulmonary edema; F17.210 Nicotine dependence, cigarettes, uncomplicated; N18.6 End stage renal disease; J44.9 Chronic obstructive pulmonary disease, unspecified; K21.9 Gastro-esophageal reflux disease without esophagitis; I10 Essential (primary) hypertension; F41.9 Anxiety disorder, unspecified; F32.9 Major depressive disorder, single episode, unspecified; E03.9 Hypothyroidism, unspecified; Z99.2 Dependence on renal dialysis; Z79.899 Other long term (current) drug therapy; Z79.82 Long term (current) use of aspirin; Z88.8 Allergy status to other drugs, medicaments and biological substances; Z88.5 Allergy status to narcotic agent
CPT/HCPCS: 31500; 36415; 71045; 80053; 83735; 85007; 85027; 96365; 96375; 96376; 99285; J1940; J2704; J3490